=== PATIENT | male | born 1990 | race Caucasian/White ===

== ENCOUNTER 2019-10-20 14:08 | Emergency (ER) | payer OTHER ==
[~2019-10-20] VITALS: Ht 172.7 cm; Wt 72.6 kg
[2019-10-20] MEDS ORDERED: CIPRO500 M1 PO ×2 (17:05→17:06)
[2019-10-20] MEDS ORDERED: MOBIC15 MG PO (17:06)
[2019-10-20 17:40] VITALS: BP 136/74
== END 2019-10-20 17:40 | disposition home or self-care (01) ==
LOC: ER 14:08
DX: S91.332A Puncture wound without foreign body, left foot, initial encounter (principal); W45.8XXA Other foreign body or object entering through skin, initial encounter; Y92.89 Other specified places as the place of occurrence of the external cause; Y93.89 Activity, other specified; Y99.8 Other external cause status